=== PATIENT | male | born 1955 | race Two or more races ===

== ENCOUNTER 2021-10-05 11:56 | Inpatient (IN) | payer MEDICARE, OTHER ==
[~2021-10-05] VITALS: Ht 175.3 cm; Wt 79.8 kg
[2021-10-05 15:23] LABS: BASOPHILS % (AUTO) 0.5 % (0.0-2.0); EOSINOPHILS % (AUTO) 2.1 % (1.0-6.0); HEMATOCRIT 35.4 % (41-53); HEMOGLOBIN 11.5 g/dL (13.5-17.5); LYMPHOCYTES # (AUTO) 0.6 K/uL (1.0-4.8); LYMPHOCYTES % (AUTO) 11.8 % (22.0-44.0); MEAN CORPUSCULAR HEMOGLOBIN 31.1 pg (26.0-34.0); MEAN CORPUSCULAR HGB CONC 32.5 G/dL (31.0-37.0); MEAN CORPUSCULAR VOLUME 96 fL (80-100); MONOCYTES # (AUTO) 0.3 K/uL (0.1-1.0); NEUTROPHILS # (AUTO) 4.3 K/uL (1.8-7.7); NEUTROPHILS % (AUTO) 79.6 % (40.0-70.0); PLATELET COUNT (AUTO) 125 K/uL (150-450); RED BLOOD CELL COUNT(AUTO) 3.69 MIL/uL (4.50-5.90); RED CELL DISTRIBUTION WIDTH 19.9 % (11.5-14.5)
[2021-10-05 15:24] LABS: COVID AG,FIA SOURCE NASOPHARYNGEAL
[2021-10-05] MEDS ORDERED: HydrALAZINE HCL 20 MG/ML VIAL IVP ONE (15:30)
[2021-10-05 15:34] LABS: ANION GAP 15 mmol/L (8-16); CALCIUM, TOTAL 9.1 mg/dL (8.8-10.5); CARBON DIOXIDE 29 mmol/L (22-29); CHLORIDE 89 mmol/L (98-107); CREATININE 8.41 mg/dL (0.60-1.30); GLUCOSE,RANDOM 103 mg/dL (70-110); POTASSIUM 5.4 mmol/L (3.5-5.1); SODIUM SERUM 133 mmol/L (136-145); UREA NITROGEN, BLOOD 96 mg/dL (7-18)
[2021-10-05 15:36] LABS: PROTHROMBIN TIME 10.9 SEC (9.4-11.6)
[2021-10-05 15:37] LABS: GLOMERULAR FILTR. RATE CALC 6 mL/min (>60)
[2021-10-05] MEDS ORDERED: CefTRIAXone 1 GM/DEXTROSE 50 ML IV ONE (15:45)
[2021-10-05] MEDS ORDERED: AZITHROMYCIN 500 MG/NS 250 ML IV ONE (15:45)
[2021-10-05 15:48] LABS: B-TYPE NATRIURETIC PEPTIDE > 5000 pg/mL (0-100)
[2021-10-05 16:08] LABS: ALANINE AMINOTRANSFERASE 75 U/L (12-78); ALBUMIN 3.6 g/dL (3.4-5.0); ALKALINE PHOSPHATASE 170 U/L (46-116); ASPARTATE AMINOTRANSFERASE 46 U/L (15-37); BILIRUBIN,TOTAL 0.6 mg/dL (0.1-1.0); CREATINE KINASE, TOTAL ONLY 428 U/L (39-308); PHOSPHORUS 5.2 mg/dL (2.5-4.9)
[2021-10-05] MEDS ORDERED: MAGNESIUM HYDROXIDE SUSPENSION 30 ML UDCUP PO PRN (16:30)
[2021-10-05] MEDS ORDERED: MORPHINE SULFATE 2 MG/ML SYRINGE IVP PRN (16:30)
[2021-10-05] MEDS ORDERED: HydrALAZINE HCL 20 MG/ML VIAL IVP PRN (16:30)
[2021-10-05] MEDS ORDERED: ACETAMINOPHEN 325 MG TABLET PO PRN (16:30)
[2021-10-05] MEDS ORDERED: LABETALOL HCL 200 MG in DEXTROSE 5%-WATER 160 ML IV PRN (16:30)
[2021-10-05] MEDS ORDERED: ZOLPIDEM TARTRATE 5 MG TABLET PO PRN (16:30)
[2021-10-05] MEDS ORDERED: BISACODYL 10 MG RECTAL RECTAL SUPPOSITORY PR PRN (16:30)
[2021-10-05] MEDS ORDERED: ONDANSETRON HCL 4 MG/2 ML VIAL IVP PRN (16:30)
[2021-10-05] MEDS ORDERED: SODIUM ZIRCONIUM CYCLOSILICATE 5 GM POWDER PACKET PO ONE (16:30)
[2021-10-05] MEDS: VITAMIN B COMP/VIT C/FOLIC ACID CAPSULE PO SCH (17:13)
[2021-10-05] MEDS: DOCUSATE SODIUM 100 MG CAPSULE PO SCH (21:00)
[2021-10-05 22:00] VITALS: BP 201/104
[2021-10-05] MEDS: HydrALAZINE HCL 20 MG/ML VIAL IVP PRN (22:26)
[2021-10-05 23:45] VITALS: BP_SYST 190; BP_SYST 195; BP_DIAS 90; BP_DIAS 97
[2021-10-06] VITALS (12 sets, daily range): BP systolic 174–197; BP diastolic 82–104
[2021-10-06] MEDS: HEPARIN SODIUM,PORCINE 5,000 UNITS/ML VIAL SQ SCH ×4 (00:31→23:25)
[2021-10-06] MEDS: HydrALAZINE HCL 20 MG/ML VIAL IVP PRN ×3 (04:26→18:38)
[2021-10-06 05:45] LABS: BASOPHILS % (AUTO) 0.8 % (0.0-2.0); EOSINOPHILS % (AUTO) 1.2 % (1.0-6.0); HEMATOCRIT 33.5 % (41-53); HEMOGLOBIN 11.1 g/dL (13.5-17.5); LYMPHOCYTES # (AUTO) 0.6 K/uL (1.0-4.8); LYMPHOCYTES % (AUTO) 13.7 % (22.0-44.0); MEAN CORPUSCULAR HEMOGLOBIN 31.5 pg (26.0-34.0); MEAN CORPUSCULAR HGB CONC 33.3 G/dL (31.0-37.0); MEAN CORPUSCULAR VOLUME 95 fL (80-100); MONOCYTES # (AUTO) 0.4 K/uL (0.1-1.0); MONOCYTES % (AUTO) 8.2 % (2.0-9.0); NEUTROPHILS # (AUTO) 3.6 K/uL (1.8-7.7); NEUTROPHILS % (AUTO) 76.1 % (40.0-70.0); PLATELET COUNT (AUTO) 125 K/uL (150-450); RED BLOOD CELL COUNT(AUTO) 3.54 MIL/uL (4.50-5.90); RED CELL DISTRIBUTION WIDTH 19.9 % (11.5-14.5)
[2021-10-06 05:51] LABS: CALCIUM, TOTAL 8.8 mg/dL (8.8-10.5); CREATININE 6.08 mg/dL (0.60-1.30)
[2021-10-06] MEDS: PANTOPRAZOLE SODIUM 40 MG DR TABLET PO SCH (07:42)
[2021-10-06] MEDS: VITAMIN B COMP/VIT C/FOLIC ACID CAPSULE PO SCH (07:42)
[2021-10-06] MEDS: NICOTINE 21 MG/24 HOUR PATCH TD SCH (07:42)
[2021-10-06] MEDS: ETHYL ALCOHOL 62% ANTISEPTIC NASAL SANITIZER 0.6 ML AMPUL NASAL SCH ×2 (07:42→19:59)
[2021-10-06] MEDS: DOCUSATE SODIUM 100 MG CAPSULE PO SCH ×2 (07:54→19:59)
[2021-10-06] MEDS ORDERED: AmLODIPine BESYLATE 10 MG TABLET PO SCH (09:00)
[2021-10-06] MEDS: LOSARTAN POTASSIUM 50 MG TABLET PO SCH (09:17)
[2021-10-06] MEDS: LABETALOL HCL 5 MG/ML 20 ML VIAL IVP PRN ×8 (10:03→23:26)
[2021-10-07] VITALS (16 sets, daily range): BP systolic 149–182; BP diastolic 65–96
[2021-10-07] MEDS: LABETALOL HCL 5 MG/ML 20 ML VIAL IVP PRN ×2 (00:45→07:43)
[2021-10-07] MEDS: HydrALAZINE HCL 20 MG/ML VIAL IVP PRN (02:02)
[2021-10-07 05:16] LABS: BASOPHILS % (AUTO) 0.7 % (0.0-2.0); EOSINOPHILS % (AUTO) 2.4 % (1.0-6.0); HEMATOCRIT 33.4 % (41-53); HEMOGLOBIN 11.1 g/dL (13.5-17.5); LYMPHOCYTES # (AUTO) 0.9 K/uL (1.0-4.8); LYMPHOCYTES % (AUTO) 17.1 % (22.0-44.0); MEAN CORPUSCULAR HEMOGLOBIN 31.6 pg (26.0-34.0); MEAN CORPUSCULAR HGB CONC 33.1 G/dL (31.0-37.0); MEAN CORPUSCULAR VOLUME 95 fL (80-100); MONOCYTES # (AUTO) 0.7 K/uL (0.1-1.0); MONOCYTES % (AUTO) 13.7 % (2.0-9.0); NEUTROPHILS # (AUTO) 3.5 K/uL (1.8-7.7); NEUTROPHILS % (AUTO) 66.1 % (40.0-70.0); PLATELET COUNT (AUTO) 134 K/uL (150-450); RED BLOOD CELL COUNT(AUTO) 3.51 MIL/uL (4.50-5.90); RED CELL DISTRIBUTION WIDTH 19.5 % (11.5-14.5)
[2021-10-07 05:26] LABS: CALCIUM, TOTAL 8.8 mg/dL (8.8-10.5); CREATININE 7.75 mg/dL (0.60-1.30); POTASSIUM 5.1 mmol/L (3.5-5.1)
[2021-10-07] MEDS ORDERED: IOHEXOL 350 MG/ML 150 ML VIAL ONE (07:44)
[2021-10-07] MEDS ORDERED: SODIUM CHLORIDE 0.9% 100 ML ONE (07:44)
[2021-10-07] MEDS: HEPARIN SODIUM,PORCINE 5,000 UNITS/ML VIAL SQ SCH ×3 (08:00→23:58)
[2021-10-07] MEDS: PANTOPRAZOLE SODIUM 40 MG DR TABLET PO SCH (08:03)
[2021-10-07] MEDS: ETHYL ALCOHOL 62% ANTISEPTIC NASAL SANITIZER 0.6 ML AMPUL NASAL SCH ×2 (08:10→20:14)
[2021-10-07] MEDS: DOCUSATE SODIUM 100 MG CAPSULE PO SCH ×2 (08:10→20:14)
[2021-10-07] MEDS: VITAMIN B COMP/VIT C/FOLIC ACID CAPSULE PO SCH (08:11)
[2021-10-07] MEDS: NICOTINE 21 MG/24 HOUR PATCH TD SCH ×2 (08:11→08:24)
[2021-10-07] MEDS: CARVEDILOL 6.25 MG TABLET PO SCH ×2 (08:12→20:14)
[2021-10-07] MEDS: LOSARTAN POTASSIUM 50 MG TABLET PO SCH (08:23)
[2021-10-07] MEDS: CloNIDine HCL 0.1 MG TABLET PO SCH ×2 (10:26→20:14)
[2021-10-07] MEDS ORDERED: SODIUM CHLORIDE 0.9% 2,000 ML ONE (14:06)
[2021-10-07] MEDS ORDERED: CloNIDine HCL 0.1 MG TABLET PO SCH (16:00)
[2021-10-07] MEDS ORDERED: SEVE800T7 PO (16:51)
[2021-10-07] MEDS ORDERED: OLAN20TA35 PO (16:51)
[2021-10-07] MEDS ORDERED: ARIP30TA PO (16:51)
[2021-10-07] MEDS ORDERED: LOSA100T58 PO (16:51)
[2021-10-07] MEDS ORDERED: NIFE30TA98 PO (16:51)
[2021-10-07] MEDS ORDERED: CLON1PAT14 TD (16:51)
[2021-10-07] MEDS ORDERED: ZOLP10TA8 PO (16:51)
[2021-10-07] MEDS ORDERED: CALC667C PO (16:51)
[2021-10-07] MEDS: OLANZapine 10 MG TABLET PO SCH (20:15)
[2021-10-08 05:52] VITALS: BP 187/108
[2021-10-08] MEDS: HydrALAZINE HCL 20 MG/ML VIAL IVP PRN ×2 (06:37→17:54)
[2021-10-08 07:22] LABS: BASOPHILS % (AUTO) 0.8 % (0.0-2.0); EOSINOPHILS % (AUTO) 6.1 % (1.0-6.0); HEMATOCRIT 33.2 % (41-53); LYMPHOCYTES # (AUTO) 0.8 K/uL (1.0-4.8); LYMPHOCYTES % (AUTO) 15.2 % (22.0-44.0); MEAN CORPUSCULAR HEMOGLOBIN 31.8 pg (26.0-34.0); MEAN CORPUSCULAR HGB CONC 33.1 G/dL (31.0-37.0); MEAN CORPUSCULAR VOLUME 96 fL (80-100); MONOCYTES # (AUTO) 0.6 K/uL (0.1-1.0); MONOCYTES % (AUTO) 11.1 % (2.0-9.0); NEUTROPHILS # (AUTO) 3.4 K/uL (1.8-7.7); NEUTROPHILS % (AUTO) 66.8 % (40.0-70.0); PLATELET COUNT (AUTO) 125 K/uL (150-450); RED BLOOD CELL COUNT(AUTO) 3.45 MIL/uL (4.50-5.90); RED CELL DISTRIBUTION WIDTH 19.4 % (11.5-14.5)
[2021-10-08 07:30] VITALS: BP 175/84
[2021-10-08 07:33] LABS: CREATININE 5.82 mg/dL (0.60-1.30); POTASSIUM 4.8 mmol/L (3.5-5.1)
[2021-10-08] MEDS: VITAMIN B COMP/VIT C/FOLIC ACID CAPSULE PO SCH (08:55)
[2021-10-08] MEDS: HEPARIN SODIUM,PORCINE 5,000 UNITS/ML VIAL SQ SCH ×3 (08:56→23:49)
[2021-10-08] MEDS: CloNIDine HCL 0.1 MG TABLET PO SCH (08:57)
[2021-10-08] MEDS: DOCUSATE SODIUM 100 MG CAPSULE PO SCH ×2 (08:57→21:00)
[2021-10-08] MEDS: LOSARTAN POTASSIUM 50 MG TABLET PO SCH (08:57)
[2021-10-08] MEDS: CARVEDILOL 6.25 MG TABLET PO SCH (08:57)
[2021-10-08] MEDS: PANTOPRAZOLE SODIUM 40 MG DR TABLET PO SCH (08:57)
[2021-10-08] MEDS: NICOTINE 21 MG/24 HOUR PATCH TD SCH (09:00)
[2021-10-08] MEDS: ETHYL ALCOHOL 62% ANTISEPTIC NASAL SANITIZER 0.6 ML AMPUL NASAL SCH ×2 (09:01→21:27)
[2021-10-08] MEDS: ARIPiprazole 15 MG TABLET PO SCH (10:23)
[2021-10-08 12:50] VITALS: BP 162/81
[2021-10-08 17:39] VITALS: BP 187/97
[2021-10-08 19:15] VITALS: BP 168/80
[2021-10-08] MEDS: CARVEDILOL 12.5 MG TABLET PO SCH (21:27)
[2021-10-08] MEDS: CloNIDine HCL 0.2 MG TABLET PO SCH (21:27)
[2021-10-08] MEDS: HydrALAZINE HCL 25 MG TABLET PO SCH (21:28)
[2021-10-08] MEDS: OLANZapine 10 MG TABLET PO SCH (21:28)
[2021-10-08 23:35] VITALS: BP 151/71
[2021-10-09] MEDS: HydrALAZINE HCL 20 MG/ML VIAL IVP PRN ×2 (04:41→16:55)
[2021-10-09 04:45] VITALS: BP 160/90
[2021-10-09] MEDS: LABETALOL HCL 5 MG/ML 20 ML VIAL IVP PRN ×2 (06:26→23:14)
[2021-10-09 07:59] VITALS: BP 166/92
[2021-10-09] MEDS: VITAMIN B COMP/VIT C/FOLIC ACID CAPSULE PO SCH (08:24)
[2021-10-09] MEDS: ARIPiprazole 15 MG TABLET PO SCH (08:24)
[2021-10-09] MEDS: HEPARIN SODIUM,PORCINE 5,000 UNITS/ML VIAL SQ SCH ×2 (08:25→16:55)
[2021-10-09] MEDS: HydrALAZINE HCL 25 MG TABLET PO SCH ×2 (08:25→20:56)
[2021-10-09] MEDS: CARVEDILOL 12.5 MG TABLET PO SCH ×2 (08:25→20:59)
[2021-10-09] MEDS: ETHYL ALCOHOL 62% ANTISEPTIC NASAL SANITIZER 0.6 ML AMPUL NASAL SCH ×2 (08:25→21:16)
[2021-10-09] MEDS: CloNIDine HCL 0.2 MG TABLET PO SCH ×2 (08:25→20:56)
[2021-10-09] MEDS: PANTOPRAZOLE SODIUM 40 MG DR TABLET PO SCH (08:25)
[2021-10-09] MEDS: LOSARTAN POTASSIUM 50 MG TABLET PO SCH (08:25)
[2021-10-09] MEDS: DOCUSATE SODIUM 100 MG CAPSULE PO SCH ×2 (08:26→20:59)
[2021-10-09] MEDS: NICOTINE 21 MG/24 HOUR PATCH TD SCH (09:00)
[2021-10-09 11:28] VITALS: BP 139/71
[2021-10-09 16:17] VITALS: BP 163/85
[2021-10-09 20:02] VITALS: BP 175/95
[2021-10-09] MEDS: OLANZapine 10 MG TABLET PO SCH (20:58)
[2021-10-09] MEDS: HYDROCODONE/ACETAMINOPHEN 5-325 MG TABLET PO PRN (20:59)
[2021-10-10] VITALS (17 sets, daily range): BP systolic 122–190; BP diastolic 54–121
[2021-10-10] MEDS: HEPARIN SODIUM,PORCINE 5,000 UNITS/ML VIAL SQ SCH ×4 (00:40→23:21)
[2021-10-10] MEDS: HYDROCODONE/ACETAMINOPHEN 5-325 MG TABLET PO PRN ×2 (04:43→21:34)
[2021-10-10 06:11] LABS: BASOPHILS % (AUTO) 0.9 % (0.0-2.0); EOSINOPHILS % (AUTO) 8.5 % (1.0-6.0); HEMATOCRIT 32.7 % (41-53); HEMOGLOBIN 10.7 g/dL (13.5-17.5); LYMPHOCYTES # (AUTO) 1.1 K/uL (1.0-4.8); LYMPHOCYTES % (AUTO) 29.3 % (22.0-44.0); MEAN CORPUSCULAR HEMOGLOBIN 31.3 pg (26.0-34.0); MEAN CORPUSCULAR HGB CONC 32.8 G/dL (31.0-37.0); MEAN CORPUSCULAR VOLUME 95 fL (80-100); MONOCYTES # (AUTO) 0.3 K/uL (0.1-1.0); MONOCYTES % (AUTO) 9.1 % (2.0-9.0); NEUTROPHILS # (AUTO) 1.9 K/uL (1.8-7.7); NEUTROPHILS % (AUTO) 52.2 % (40.0-70.0); PLATELET COUNT (AUTO) 139 K/uL (150-450); RED BLOOD CELL COUNT(AUTO) 3.42 MIL/uL (4.50-5.90); RED CELL DISTRIBUTION WIDTH 19.2 % (11.5-14.5)
[2021-10-10 06:34] LABS: CALCIUM, TOTAL 9.2 mg/dL (8.8-10.5); CREATININE 7.93 mg/dL (0.60-1.30); MAGNESIUM 2.3 mg/dL (1.80-2.40); PHOSPHORUS 6.7 mg/dL (2.5-4.9); POTASSIUM 5.8 mmol/L (3.5-5.1)
[2021-10-10] MEDS ORDERED: SODIUM CHLORIDE 0.9% 1,000 ML ONE (08:57)
[2021-10-10] MEDS: NICOTINE 21 MG/24 HOUR PATCH TD SCH (09:00)
[2021-10-10] MEDS ORDERED: DiphenhydrAMINE HCL 50 MG/ML VIAL IVP PRN (10:00)
[2021-10-10] MEDS: DOCUSATE SODIUM 100 MG CAPSULE PO SCH ×2 (10:33→21:34)
[2021-10-10] MEDS: HydrALAZINE HCL 25 MG TABLET PO SCH ×2 (10:33→21:34)
[2021-10-10] MEDS: PANTOPRAZOLE SODIUM 40 MG DR TABLET PO SCH (10:34)
[2021-10-10] MEDS: CloNIDine HCL 0.2 MG TABLET PO SCH ×2 (10:34→21:34)
[2021-10-10] MEDS: CARVEDILOL 12.5 MG TABLET PO SCH ×2 (10:34→21:34)
[2021-10-10] MEDS: LOSARTAN POTASSIUM 50 MG TABLET PO SCH (10:35)
[2021-10-10] MEDS: VITAMIN B COMP/VIT C/FOLIC ACID CAPSULE PO SCH (10:35)
[2021-10-10] MEDS: ETHYL ALCOHOL 62% ANTISEPTIC NASAL SANITIZER 0.6 ML AMPUL NASAL SCH ×2 (10:54→21:34)
[2021-10-10] MEDS: ARIPiprazole 15 MG TABLET PO SCH (10:57)
[2021-10-10] MEDS: HydrALAZINE HCL 20 MG/ML VIAL IVP PRN (11:00)
[2021-10-10] MEDS: OLANZapine 10 MG TABLET PO SCH (21:34)
[2021-10-11] MEDS: HYDROCODONE/ACETAMINOPHEN 5-325 MG TABLET PO PRN ×2 (02:24→16:57)
[2021-10-11 05:43] VITALS: BP 154/88
[2021-10-11 07:27] VITALS: BP 169/91
[2021-10-11 07:40] LABS: CALCIUM, TOTAL 9.2 mg/dL (8.8-10.5); CREATININE 5.97 mg/dL (0.60-1.30); POTASSIUM 5.4 mmol/L (3.5-5.1)
[2021-10-11] MEDS: CARVEDILOL 12.5 MG TABLET PO SCH (08:45)
[2021-10-11] MEDS: VITAMIN B COMP/VIT C/FOLIC ACID CAPSULE PO SCH (08:46)
[2021-10-11] MEDS: DOCUSATE SODIUM 100 MG CAPSULE PO SCH (08:46)
[2021-10-11] MEDS: LOSARTAN POTASSIUM 50 MG TABLET PO SCH (08:47)
[2021-10-11] MEDS: HydrALAZINE HCL 25 MG TABLET PO SCH (08:47)
[2021-10-11] MEDS: PANTOPRAZOLE SODIUM 40 MG DR TABLET PO SCH (08:47)
[2021-10-11] MEDS: CloNIDine HCL 0.2 MG TABLET PO SCH (08:48)
[2021-10-11] MEDS: ARIPiprazole 15 MG TABLET PO SCH (08:48)
[2021-10-11] MEDS: ETHYL ALCOHOL 62% ANTISEPTIC NASAL SANITIZER 0.6 ML AMPUL NASAL SCH (08:49)
[2021-10-11] MEDS: HEPARIN SODIUM,PORCINE 5,000 UNITS/ML VIAL SQ SCH ×2 (08:49→16:59)
[2021-10-11] MEDS: NICOTINE 21 MG/24 HOUR PATCH TD SCH (08:55)
[2021-10-11 11:42] VITALS: BP 156/89
[2021-10-11 14:18] VITALS: BP 143/78
[2021-10-11] MEDS ORDERED: HydrALAZINE HCL 50 MG TABLET PO SCH (16:00)
== END 2021-10-11 19:00 | DRG 291 ==
LOC: EMS 11:56 → ICU 20:31 → 5N 10-07 22:00
PROVIDERS: ADMIT Internal Medicine; ATTEND Internal Medicine
PROC: 5A1D70Z Performance of Urinary Filtration, Intermittent, Less than 6 Hours Per Day (ICD-10-PCS; principal; 2021-10-06)
PROC: 5A1D70Z Performance of Urinary Filtration, Intermittent, Less than 6 Hours Per Day (ICD-10-PCS; 2021-10-07)
PROC: 5A1D70Z Performance of Urinary Filtration, Intermittent, Less than 6 Hours Per Day (ICD-10-PCS; 2021-10-09)
PROC: 5A1D70Z Performance of Urinary Filtration, Intermittent, Less than 6 Hours Per Day (ICD-10-PCS; 2021-10-11)
DX: I13.2 Hypertensive heart and chronic kidney disease with heart failure and with stage 5 chronic kidney disease, or end stage renal disease (principal); G93.41 Metabolic encephalopathy; I50.33 Acute on chronic diastolic (congestive) heart failure; J96.01 Acute respiratory failure with hypoxia; N18.6 End stage renal disease; I16.1 Hypertensive emergency; J44.0 Chronic obstructive pulmonary disease with (acute) lower respiratory infection; E87.1 Hypo-osmolality and hyponatremia; E87.5 Hyperkalemia; D63.1 Anemia in chronic kidney disease; F17.210 Nicotine dependence, cigarettes, uncomplicated; Z20.822 Contact with and (suspected) exposure to COVID-19; I27.20 Pulmonary hypertension, unspecified; I77.810 Thoracic aortic ectasia; M19.90 Unspecified osteoarthritis, unspecified site; Z79.899 Other long term (current) drug therapy; Z82.5 Family history of asthma and other chronic lower respiratory diseases; Z86.718 Personal history of other venous thrombosis and embolism; Z99.2 Dependence on renal dialysis; Z88.8 Allergy status to other drugs, medicaments and biological substances; Z91.15 Patient's noncompliance with renal dialysis
CPT/HCPCS: 70450; 70480; 70486; 71045; 71260; 72125; 72193; 74160; 80048; 80053; 82140; 82550; 83735; 83880; 84100; 84484; 85025; 85610; 85730; 87081; 87340; 90935; 92526; 92610; 93005; 93306; 93970; 97116; 97163; 97530; 99291; G0378; G0480; J0360; J0456; J0696; J1644; J3490; J7030; J7050; J7060; Q9967; 36415-L1; 36415-TC